=== PATIENT | female | born 1965 | race African-American/Black ===

== ENCOUNTER 2017-03-07 18:19 | Emergency (ER) | payer OTHER ==
[~2017-03-07] VITALS: Ht 154.9 cm; Wt 84.8 kg
[~2017-03-07 18:19] MED LIST: ATOR10TA PO; LEVO150T PO; METF500T4 PO
[2017-03-07 18:24] VITALS: BP 162/88
== END 2017-03-07 18:56 | disposition home or self-care (01) ==
LOC: ER 18:25
DX: M25.462 Effusion, left knee (principal); J45.909 Unspecified asthma, uncomplicated; E03.9 Hypothyroidism, unspecified; M19.90 Unspecified osteoarthritis, unspecified site
CPT/HCPCS: 29505; 99283; A4606 ×2; Z7610 ×2

== ENCOUNTER 2017-05-25 22:36 | Inpatient (IN) | payer OTHER ==
[~2017-05-25] VITALS: Ht 167.6 cm; Wt 81.2 kg
--- NOTE | 2017-05-25 22:47 | NUR ---
51 Y/O FEMALE PLACED IN BED 11 C/O SOB. HX ASTHMA
--- NOTE | 2017-05-25 22:54 | NUR ---
H/L 20G PLACE IN LEFT A/C. PT TOLERATED PROCEDURE WELL. PT PLACED ON 2L N/C TO ASSIST IN BREATHING.
[2017-05-25] MEDS ORDERED: ALBUTEROL FS 2.5 MG/3 ML VIAL.NEB ONE (22:56)
[2017-05-25] MEDS ORDERED: IPRATROPIUM NEB FS 0.5 MG/2.5 ML AMPUL.NEB ONE (22:56)
[2017-05-25] MEDS ORDERED: ALBUTEROL FS 2.5 MG/3 ML VIAL.NEB CONTNEB ONE (23:00)
[2017-05-25] MEDS ORDERED: IPRATROPIUM NEB FS 0.5 MG/2.5 ML AMPUL.NEB NEB ONE (23:00)
[2017-05-25] MEDS ORDERED: DEXAMETHASONE SOD PHOSPHATE 4 MG/ML VIAL IM ONE (23:00)
[2017-05-25] MEDS ORDERED: DEXAMETHASONE SOD PHOSPHATE 10 MG/ML VIAL ONE (23:02)
--- NOTE | 2017-05-25 23:07 | NUR ---
DECADRON GIVEN IM. BREATHING TREATMENT IN PROGRESS. PCXR DONE.
[2017-05-26] MEDS ORDERED: IV NS 0.9% 1,000 ML BAG IV ONE
[2017-05-26] MEDS ORDERED: LORAZEPAM INJ 2 MG/ML VIAL IV ONE
[2017-05-26] MEDS ORDERED: LORAZEPAM INJ 2 MG/ML VIAL ONE (00:04)
--- NOTE | 2017-05-26 00:54 | NUR ---
CALLED CAFETERIA TABLE ATTENDANT FOR TELE BED
--- NOTE | 2017-05-26 00:56 | NUR ---
REPORT RECEIVED FROM HEATHER Cutler RN FOR DEEPIKA.
--- NOTE | 2017-05-26 00:57 | NUR ---
LAB AT BEDSIDE.
[2017-05-26] MEDS ORDERED: OSELTAMIVIR PHOSPHATE 75 MG CAPSULE PO ONE (01:00)
[2017-05-26] MEDS ORDERED: ACETAMINOPHEN 325 MG TABLET PO ONE (01:00)
--- NOTE | 2017-05-26 01:05 | NUR ---
PT SVT ON SENIOR SALES MANAGER, MD AT BEDSIDE.
[2017-05-26 01:07] LABS: EOSINOPHILS # (AUTO) 0.2 /CMM (0.0-0.7); EOSINOPHILS % (AUTO) 1.7 % (0.0-6.0); HEMATOCRIT 39 % (33-45); LYMPHOCYTES # (AUTO) 0.9 /CMM (0.8-4.8); LYMPHOCYTES % (AUTO) 8.8 % (20.0-44.0); MEAN CORPUSCULAR HEMOGLOBIN 26 PG (26.0-33.0); MEAN CORPUSCULAR HGB CONC 33 g/dl (31.0-36.0); MEAN CORPUSCULAR VOLUME 79 fL (82-100); MONOCYTES # (AUTO) 0.2 /CMM (0.1-1.30); MONOCYTES % (AUTO) 1.6 % (2.0-12.0); NEUTROPHILS # (AUTO) 8.9 /CMM (1.8-8.9); NEUTROPHILS % (AUTO) 87.9 % (43.0-81.0); PLATELET COUNT (AUTO) 340 /CMM (150-450); RDW COEFFICIENT OF VARIATION 14.9 (11.5-15.0); WHITE BLOOD COUNT (AUTO) 10.2 K/uL (4.3-11.0)
[2017-05-26] MEDS ORDERED: ADENOSINE 6 MG/2 ML VIAL ONE (01:11)
[2017-05-26 01:17] LABS: CALCIUM, SERUM 8.4 mg/dL (8.5-10.1); CREATININE 0.9 mg/dL (0.6-1.3); POTASSIUM 3.8 mmol/L (3.5-5.1)
--- NOTE | 2017-05-26 01:20 | NUR ---
PT NSR ON DISTRIBUTION CENTER ASSOCIATE, AWARE.
[2017-05-26] MEDS ORDERED: ONDANSETRON HCL/PF 4 MG/2 ML VIAL ONE (01:21)
[2017-05-26] MEDS ORDERED: ONDANSETRON HCL/PF 4 MG/2 ML VIAL IV ONE (01:30)
[2017-05-26] MEDS ORDERED: ADENOSINE 6 MG/2 ML VIAL IVP ONE (01:30)
--- NOTE | 2017-05-26 01:31 | NUR ---
PT STATES DAUGHTER WILL BRING HOME MEDS IN THE AM.
[2017-05-26] MEDS ORDERED: ACETAMINOPHEN ES 500 MG TABLET ONE (01:44)
[2017-05-26] MEDS ORDERED: OSELTAMIVIR PHOSPHATE 75 MG CAPSULE ONE ×2 (01:44→16:20)
[2017-05-26] MEDS ORDERED: MAG HYDROX/AL HYDROX/SIMETH 30 ML UDC PO PRN (02:00)
[2017-05-26] MEDS ORDERED: ONDANSETRON HCL/PF 4 MG/2 ML VIAL IVP PRN (02:00)
[2017-05-26] MEDS ORDERED: HYDROCODONE/APAP 5/325MG 1 EACH TABLET PO PRN (02:00)
[2017-05-26] MEDS ORDERED: Z GUARD REMEDY 2 OZ OINT TP PRN (02:00)
[2017-05-26] MEDS ORDERED: ACETAMINOPHEN 325 MG TABLET PO PRN (02:00)
[2017-05-26] MEDS ORDERED: ALBUTEROL FS 2.5 MG/0.5 ML VIAL.NEB NEB PRN (02:00)
[2017-05-26] MEDS ORDERED: DEXTROSE 50%-WATER 50 ML DISP.SYRIN IV PRN (02:00)
[2017-05-26] MEDS ORDERED: MAGNESIUM HYDROXIDE 30 ML UDC PO PRN (02:00)
[2017-05-26] MEDS ORDERED: ZOLPIDEM TARTRATE 5 MG TABLET PO PRN (02:00)
[2017-05-26] MEDS ORDERED: ASPIRIN 325 MG TABLET ONE ×2 (03:05→15:29)
--- NOTE | 2017-05-26 03:11 | NUR ---
PT RESTING QUIETLY, VSS/RESP EVEN UNLABORED.
[2017-05-26] MEDS ORDERED: ASPIRIN 325 MG TABLET PO ONE (03:30)
--- NOTE | 2017-05-26 04:27 | NUR ---
ULTRASOUND AT BEDSIDE.
--- NOTE | 2017-05-26 06:09 | NUR ---
NO CHANGES, AWAITING BED ASSIGNMENT. PT RESTING QUIETLY, VSS/RESP EVEN UNLABORED.
--- NOTE | 2017-05-26 07:19 | NUR ---
REPORT GIVEN TO VAIBHAV BROWN FOR DEEPIKA.
--- NOTE | 2017-05-26 07:22 | NUR ---
RECEIVED REPORT FOR DEEPIKA. PATIENT SLEEPING COMFORTABLY, VITALS STABLE. SAFETY AND COMFORT MEASURES IN PLACE. WILL CONTINUE TO MONITOR.
[2017-05-26] MEDS ORDERED: LEVOTHYROXINE SODIUM 150 MCG TABLET PO SCH ×2 (09:00→14:55)
[2017-05-26] MEDS ORDERED: ENOXAPARIN SODIUM 40 MG/0.4 ML DISP.SYRIN SQ ONE (15:28)
[2017-05-26] MEDS: BLOOD SUGAR DIAGNOSTIC 1 EACH STRIP VI SCH ×3 (15:31→18:14)
--- NOTE | 2017-05-26 15:31 | NUR ---
BLOOD SUGAR CHECKED, READING 327. INFORMED, COVERED WITH REGULAR INSULIN MODERATE SLIDING SCALE.
[2017-05-26] MEDS ORDERED: INSULIN REGULAR, HUMAN 100 UNIT/ML 10 ML VIAL ONE (15:32)
[2017-05-26] MEDS: ENOXAPARIN SODIUM 40 MG/0.4 ML DISP.SYRIN SQ SCH (15:38)
[2017-05-26] MEDS: ASPIRIN 325 MG TABLET PO SCH (15:38)
--- NOTE | 2017-05-26 15:38 | NUR ---
PER DR. WOODALL, ADMINISTER INPATIENT MEDICATIONS IN ER UNTIL PATIENT IS TRANSFERRED TO BED. PER PHARMACIST JANY OLEA TO PULL INPATIENT MEDICATIONS FROM ER OMNICELL. PHARMACIST DID NOT PROVIDE INPATIENT MEDICATIONS DIRECTLY FROM PHARMACY.
[2017-05-26] MEDS ORDERED: methylPREDNISolone SOD SUCC 125 MG/2ML VIAL ONE (16:20)
[2017-05-26] MEDS: LEVOTHYROXINE SODIUM 75 MCG TABLET PO SCH (16:26)
[2017-05-26] MEDS: METFORMIN 500 MG TABLET PO SCH ×2 (16:26→18:08)
[2017-05-26] MEDS: methylPREDNISolone SOD SUCC 125 MG/2ML VIAL IV SCH (16:26)
[2017-05-26] MEDS: OSELTAMIVIR PHOSPHATE 75 MG CAPSULE PO SCH (16:26)
--- NOTE | 2017-05-26 18:08 | NUR ---
METFORMING MARKED NOT ADMINISTERED AT THIS TIME. PATIENT BEGAN TAKING FIRST DOSE AT 1626.
--- NOTE | 2017-05-26 18:09 | NUR ---
BLOOD SUGAR CHECKED, READING 360. INFORMED, COVERED WITH MODERATE SLIDING SCALE REGULAR INSULIN.
--- NOTE | 2017-05-26 19:36 | NUR ---
REPORT GIVEN TO DELGADO ESPOSITO FOR DEEPIKA
--- NOTE | 2017-05-26 20:29 | NUR ---
report recieved from sue
--- NOTE | 2017-05-26 21:28 | NUR ---
201. AWAITING ANOTHER PT TO BE TRANSFERD TO ANOTHER ROOM AND HOUSE KEEPING TO CLEAN THE ROOM
--- NOTE | 2017-05-26 21:55 | NUR ---
CALLED TO GIVE REPORT, NO ASSIGNED NURSE TO THE PT YET. WILL CALL BACK IN 10MINS
[2017-05-27] VITALS: BP 140/79
[2017-05-27] MEDS: methylPREDNISolone SOD SUCC 125 MG/2ML VIAL IV SCH ×5 (00:06→21:42)
[2017-05-27] MEDS: ATORVASTATIN 10 MG TABLET PO SCH ×2 (00:06→21:42)
[2017-05-27] MEDS: BLOOD SUGAR DIAGNOSTIC 1 EACH STRIP VI SCH ×5 (00:09→21:50)
[2017-05-27] MEDS: *INSULIN REGULAR(HUMULIN R)HUM 100 UNIT/ML VIAL SQ PRN ×2 (00:11→21:43)
--- NOTE | 2017-05-27 00:46 | NUR ---
RN NOTES CLARIFIED ADMITTING ORDERS WITH DR PINEDA, PATIENT IS TELEMETRY STATUS. WILL CONTINUE TO CLOSELY MONITOR.
--- NOTE | 2017-05-27 03:19 | NUR ---
RN NOTE RECEIVED PATIENT FROM ER, REPORT WAS GIVEN BY LORRIE, PATENT IS ALERT/ORIENTED, ON DROPLET ISOLATION DUE TO FLU, NSTEMI, ASTHMA, ON ROOM AIR 96%, NO S/S OF DISTRESS NOTED, PATIENT REQUESTED MAALOX DUE TO HEART BURN, MAALOX WAS ADMINISTERED, MEDICATION WAS EFFECTIVE, VITAL SIGNS: BP 140/79, SO2 96%, TEMPERATURE 98.4F, PULSE 83, PATIENT IS SINUS RYTHM ON THE MONITOR, MRSA SWAB WAS DONE IN THE ER, ACOORDING TO LORRIE, BED IN THE LOW POSITION, CALL LIGHT WITHIN REACH, SIDE RAILS UP X 2, WILL CONTINUE TO MONITOR
[2017-05-27 06:45] LABS: BASOPHILS % (AUTO) 0.2 % (0.0-2.0); EOSINOPHILS % (AUTO) 0.1 % (0.0-6.0); HEMATOCRIT 39 % (33-45); HEMOGLOBIN 12.7 g/dL (11.5-14.8); LYMPHOCYTES # (AUTO) 1.3 /CMM (0.8-4.8); LYMPHOCYTES % (AUTO) 15.1 % (20.0-44.0); MEAN CORPUSCULAR HEMOGLOBIN 26 PG (26.0-33.0); MEAN CORPUSCULAR HGB CONC 33 g/dl (31.0-36.0); MEAN CORPUSCULAR VOLUME 79 fL (82-100); MONOCYTES # (AUTO) 0.3 /CMM (0.1-1.30); MONOCYTES % (AUTO) 3.9 % (2.0-12.0); NEUTROPHILS # (AUTO) 6.9 /CMM (1.8-8.9); NEUTROPHILS % (AUTO) 80.7 % (43.0-81.0); PLATELET COUNT (AUTO) 351 /CMM (150-450); RDW COEFFICIENT OF VARIATION 15.2 (11.5-15.0); RED BLOOD CELL COUNT(AUTO) 4.89 MIL/uL (4.0-5.2); WHITE BLOOD COUNT (AUTO) 8.6 K/uL (4.3-11.0)
[2017-05-27 07:11] LABS: CALCIUM, SERUM 9.3 mg/dL (8.5-10.1); CREATININE 0.9 mg/dL (0.6-1.3); MAGNESIUM 2.3 mg/dL (1.8-2.4); PHOSPHORUS 3.4 mg/dL (2.5-4.9); POTASSIUM 4.6 mmol/L (3.5-5.1)
--- NOTE | 2017-05-27 07:30 | NUR ---
BRICK OFFBEARER INITIAL NOTES RECEIVED PATIENT IN BED, AOX3, ON 2L NC, SATURATING 95%, NO SIGNS OF DISTRESS, ON DROPLET PRECAUTIONS FOR INFLUENZA, IV LAC 20G AND R FA 20G CLEAN AND PATENT, ON TELE MONITORING SR 80S, AMBULATORY, BED IN LOW AND LOCKED POSITION CALL LIGHT WITHIN REACH, WILL CONTINUE TO MONITOR.
--- NOTE | 2017-05-27 07:32 | NUR ---
RN CLOSING NOTE PATIENT HAD NO S/S OF DISTRESS, NO CHEST PAIN OR DISCOMFORT NOTED, PATIENT IS ALERT/ORIENTED, SIDE RAILS UP, CALL LIGHT WITHIN REACH, ENDORSED TO THE NEXT SHIFT
[2017-05-27 08:00] VITALS: BP 141/83
[2017-05-27] MEDS: OSELTAMIVIR PHOSPHATE 75 MG CAPSULE PO SCH ×2 (08:25→17:18)
[2017-05-27] MEDS: ASPIRIN 325 MG TABLET PO SCH (08:25)
[2017-05-27] MEDS: METFORMIN 500 MG TABLET PO SCH ×2 (08:25→17:00)
[2017-05-27] MEDS: ENOXAPARIN SODIUM 40 MG/0.4 ML DISP.SYRIN SQ SCH (08:26)
[2017-05-27] MEDS: INSULIN REGULAR, HUMAN 100 UNIT/ML 3 ML VIAL SQ PRN ×3 (09:57→17:10)
[2017-05-27 12:00] VITALS: BP 128/74
--- NOTE | 2017-05-27 12:00 | NUR ---
TRACKMAN NOTES PATIENT HAS BLOOD SUGAR 408 15 UNITS GIVEN AND GYN RADHA TORRE INFORMED.
[2017-05-27 16:00] VITALS: BP 144/81
[2017-05-27] MEDS: DOCUSATE SODIUM 100 MG CAPSULE PO SCH (17:17)
--- NOTE | 2017-05-27 19:00 | NUR ---
WELL SURVEYING ENGINEER NOTES PATIENT IN CHAIR, ALL NEEDS MET, CONSENT SIGNED FOR CT ANGIOGRAM, NPO AT MIDNIGHT, ENDORSED TO GARDENER FLORIST, METFORMIN TO BE HELD FOR 48 HOURS AFTER PROCEDURE.
--- NOTE | 2017-05-27 19:30 | NUR ---
RN OPENING NOTES: RECEIVED PATIENT SITTING ON CHAIR AT BEDSIDE, AWAKE AND ORIENTED X4; ON ROOM AIR NOT IN APPARENT DISTRESS. IV ACCESS ON LAC INTACT AND FLUSHING WELL. NOTED RFA G18 LEAKING AND PATIENT COMPLAINING OF PAIN OVER SITE. PATIENT ASKED TO REMOVE THIS IV ACCESS IT BOTHERED HER. SEEING OTHER IV ACCESS INTACT AND PATENT, REMOVED OTHER IV ACCESS. CALL LIGHT IN REACH. NO COMPLAINTS OF PAIN. AWARE THAT SHE WILL BE NPO POST MIDNIGHT FOR PROCEDURE. SAFETY MEASURES ENSURED. CONTINUOUSLY MONITORED.
[2017-05-27 20:00] VITALS: BP 134/78
[2017-05-28] VITALS: BP 146/76
[2017-05-28 04:00] VITALS: BP 141/86
[2017-05-28] MEDS: INSULIN REGULAR, HUMAN 100 UNIT/ML 3 ML VIAL SQ PRN ×3 (06:31→17:38)
[2017-05-28] MEDS: BLOOD SUGAR DIAGNOSTIC 1 EACH STRIP VI SCH ×4 (06:32→21:26)
[2017-05-28 06:43] LABS: BASOPHILS % (AUTO) 0.1 % (0.0-2.0); EOSINOPHILS % (AUTO) 0.1 % (0.0-6.0); HEMATOCRIT 37 % (33-45); HEMOGLOBIN 12.5 g/dL (11.5-14.8); LYMPHOCYTES # (AUTO) 1.4 /CMM (0.8-4.8); MEAN CORPUSCULAR HEMOGLOBIN 26 PG (26.0-33.0); MEAN CORPUSCULAR HGB CONC 34 g/dl (31.0-36.0); MEAN CORPUSCULAR VOLUME 79 fL (82-100); MONOCYTES # (AUTO) 0.7 /CMM (0.1-1.30); NEUTROPHILS # (AUTO) 8.9 /CMM (1.8-8.9); NEUTROPHILS % (AUTO) 80.8 % (43.0-81.0); PLATELET COUNT (AUTO) 336 /CMM (150-450); RDW COEFFICIENT OF VARIATION 14.9 (11.5-15.0); RED BLOOD CELL COUNT(AUTO) 4.72 MIL/uL (4.0-5.2)
[2017-05-28 06:57] LABS: CALCIUM, SERUM 9.1 mg/dL (8.5-10.1); CREATININE 0.9 mg/dL (0.6-1.3)
--- NOTE | 2017-05-28 06:57 | NUR ---
RN CLOSING NOTES: PATIENT REMAINED IN BED NOT IN APPARENT DISTRESS; NO ACUTE CHANGES OVERNIGHT, REMAINS TO HAVE PRODUCTIVE COUGH. PATIENT REQUESTING FOR MED THAT WILL LOOSEN UP HER PHLEGM. TO COMMUNICATE WITH AM SHIFT RN. PATIENT REMAINED NPO. CONSENT AND CHECKLIST FOR CT ANGIOGRAM SIGNED. CONTINUOUSLY MONITORED. ENDORSED TO AM SHIFT RN.
[2017-05-28 07:03] LABS: POTASSIUM 4.4 mmol/L (3.5-5.1)
[2017-05-28 08:00] VITALS: BP 148/78
--- NOTE | 2017-05-28 08:30 | NUR ---
RN NOTES PT RECEIVED PT AM NURSE. PT A&0X3, ON ROOM AIR NO DISTRESS NOTED. SR ON THE TELE MONITOR HR 73. LAC 20G IV SITE INTACT NO IVF. PT CURRENTLY NPO EXCEPT MEDS AWAITING CT ANGIO. AM ASPIRIN AND LOVENOX HELD BEFORE PROCEDURE. WILL CONT TO YVONNE.
[2017-05-28] MEDS: ENOXAPARIN SODIUM 40 MG/0.4 ML DISP.SYRIN SQ SCH (09:00)
[2017-05-28] MEDS: ASPIRIN 325 MG TABLET PO SCH (09:00)
[2017-05-28] MEDS: methylPREDNISolone SOD SUCC 125 MG/2ML VIAL IV SCH ×4 (09:03→21:26)
[2017-05-28] MEDS: LEVOTHYROXINE SODIUM 75 MCG TABLET PO SCH (09:03)
[2017-05-28] MEDS: OSELTAMIVIR PHOSPHATE 75 MG CAPSULE PO SCH ×2 (09:03→16:31)
[2017-05-28] MEDS: DOCUSATE SODIUM 100 MG CAPSULE PO SCH ×2 (09:04→16:22)
--- NOTE | 2017-05-28 11:45 | NUR ---
RN NOTES REPORT GIVEN BACK TO VAIBHAV DOBBS FOR CONTINUITY OF CARE.
[2017-05-28 12:00] VITALS: BP_SYST 148; BP_DIAS 78; BP_DIAS 86
[2017-05-28] MEDS ORDERED: METOPROLOL TARTRATE INJ 5 MG/5 ML AMPUL ONE (12:23)
[2017-05-28] MEDS ORDERED: IOHEXOL-350 100 ML VIAL IV ONE (12:25)
[2017-05-28] MEDS ORDERED: CT SWABBABLE VALVE TRANS SET 1 EA INFUS.SET MC ONE (12:26)
[2017-05-28] MEDS ORDERED: IV NS 0.9% 250 ML IV ONE (12:26)
--- NOTE | 2017-05-28 12:30 | NUR ---
ACCOUNT LIAISON NOTE TAKEN TO CT ANGIOGRAM ORDERED KEEP NPO
[2017-05-28 12:46] LABS: IRON, SERUM 52 ug/dl (50-175); TOTAL IRON BINDING CAPACITY 248 ug/dl (250-450)
[2017-05-28] MEDS ORDERED: VERAPAMIL HCL IV 5 MG/2 ML VIAL ONE (12:51)
[2017-05-28 13:31] LABS: FERRITIN 89 ng/mL (8-388)
--- NOTE | 2017-05-28 14:00 | NUR ---
TON CONTAINER SHIPPER NOTE BACK FROM CT ANGIO ,ALL NEEDS ATTENDED NOT IN ACUTE DISTRESS, ENCOURAGE TO DRINK WATER
[2017-05-28 16:00] VITALS: BP 147/80
--- NOTE | 2017-05-28 17:41 | NUR ---
LOAD BLOCKER NOTE UPON CHAIR ,NOT IN ACUTE DISTRESS, HAVING DINNER, ALL NEEDS ATTENDEE, NO SOB NOTED, WILL CONTO MONITOR CLOSELY
--- NOTE | 2017-05-28 19:17 | NUR ---
SALES MERCHANDISE ASSOCIATE NOT ALL NEEDS ATTENDED ,. NOT IN ACUTE DISTRESS
--- NOTE | 2017-05-28 19:30 | NUR ---
ENVIRONMENTAL SERVICES FLOOR TECH INITIAL NOTE PT RECEIVED SITTING UP IN BED. A/O X4 AND ABLE TO VERBALIZE NEEDS. ON ROOM AIR AND SATURATING WELL. BREATHING REGULAR, EVEN AND UNLABORED. TELE- SINUS RHYTHM 63. IV RAC #20 CLEAN, INTACT AND FLUSHING WELL. HOB ELEVATED. DROPLET ISOLATION PRECAUTIONS OBSERVED.CALL LIGHT WITHIN REACH. WILL CONTINUE TO MONITOR.
[2017-05-28 20:00] VITALS: BP 134/79
[2017-05-28] MEDS: ATORVASTATIN 10 MG TABLET PO SCH (21:26)
[2017-05-28] MEDS: *INSULIN REGULAR(HUMULIN R)HUM 100 UNIT/ML VIAL SQ PRN (21:41)
[2017-05-29] VITALS: BP 120/85
--- NOTE | 2017-05-29 01:00 | NUR ---
STRUCTURAL FITTER NOTE GAVE REPORT TO DEV ESPOSITO FOR CONTINUITY OF CARE.
--- NOTE | 2017-05-29 01:10 | NUR ---
TELE/RN NOTES RECEIVED REPORT FROM VAIBHAV MOHR. RECEIVED PT. FROM [facility] [employer]. PT. IS AWAKE, ALERT AND ORIENTED X4. BREATHING EVEN AND UNLABORED ON ROOM AIR. NO SOB, RESPIRATORY DISTRESS OR COMPLAINTS OF PAIN NOTED AT THIS TIME. PT. WITH EXTERNAL GROUNDS PERSON PRESENT AND INTACT CURRENT RHYTHM = SINUS RHYTHM HR 65. PT. WITH RIGHT AC 20 GAUGE IV SALINE LOCK PRESENT, PATENT AND INTACT. BED LOCKED AND IN LOWEST POSITION, SIDE RAILS UP X2, CALL LIGHT WITHIN REACH, WILL CONTINUE TO MONITOR.
[2017-05-29 04:00] VITALS: BP 124/77
--- NOTE | 2017-05-29 06:22 | NUR ---
TELE/RN NOTES PT. IS LYING IN BED RESTING. BREATHING EVEN AND UNLABORED ON ROOM AIR. NO SOB, RESPIRATORY DISTRESS OR COMPLAINTS OF PAIN NOTED AT THIS TIME. PT. WITH EXTERNAL MONUMENT ERECTOR PRESENT AND INTACT CURRENT RHYTHM = SINUS TOMI WITH PAC'S 57. PT. WITH RIGHT AC 20 GAUGE IV SALINE LOCK PRESENT, PATENT AND INTACT. BED LOCKED AND IN LOWEST POSITION, SIDE RAILS UP X2, CALL LIGHT WITHIN REACH, WILL ENDORSE TO DAYSHIFT NURSE FOR CONTINUITY OF CARE.
[2017-05-29] MEDS: BLOOD SUGAR DIAGNOSTIC 1 EACH STRIP VI SCH ×2 (06:54→12:08)
[2017-05-29] MEDS: INSULIN REGULAR, HUMAN 100 UNIT/ML 3 ML VIAL SQ PRN ×2 (06:55→12:07)
--- NOTE | 2017-05-29 07:05 | NUR ---
REPORT RECEIVED AT THE BEDSIDE. PATIENT IS RESTING COMFORTABLY IN BED. NO SOB OR DISTRESS NOTED AT THIS TIME. PATIENT DENIES PAIN AT THIS TIME. HEART RATE 65 WITH PACS ON THE MONITOR. BED IN A LOW POSITION, CALL LIGHT WITHIN PATIENT REACH. WILL CONTINUE TO MONITOR.
[2017-05-29 07:34] LABS: BASOPHILS % (AUTO) 0.2 % (0.0-2.0); HEMATOCRIT 39 % (33-45); HEMOGLOBIN 12.9 g/dL (11.5-14.8); LYMPHOCYTES # (AUTO) 1.6 /CMM (0.8-4.8); LYMPHOCYTES % (AUTO) 14.7 % (20.0-44.0); MEAN CORPUSCULAR HEMOGLOBIN 26 PG (26.0-33.0); MEAN CORPUSCULAR HGB CONC 33 g/dl (31.0-36.0); MEAN CORPUSCULAR VOLUME 79 fL (82-100); MONOCYTES # (AUTO) 0.7 /CMM (0.1-1.30); MONOCYTES % (AUTO) 6.2 % (2.0-12.0); NEUTROPHILS # (AUTO) 8.7 /CMM (1.8-8.9); NEUTROPHILS % (AUTO) 78.9 % (43.0-81.0); PLATELET COUNT (AUTO) 367 /CMM (150-450); RDW COEFFICIENT OF VARIATION 14.3 (11.5-15.0); RED BLOOD CELL COUNT(AUTO) 4.95 MIL/uL (4.0-5.2)
[2017-05-29 08:00] VITALS: BP 143/84
[2017-05-29 08:04] LABS: CALCIUM, SERUM 9.2 mg/dL (8.5-10.1); CREATININE 0.9 mg/dL (0.6-1.3); MAGNESIUM 2.1 mg/dL (1.8-2.4); PHOSPHORUS 4.3 mg/dL (2.5-4.9); POTASSIUM 4.4 mmol/L (3.5-5.1)
[2017-05-29] MEDS: ENOXAPARIN SODIUM 40 MG/0.4 ML DISP.SYRIN SQ SCH (08:45)
[2017-05-29] MEDS: LEVOTHYROXINE SODIUM 75 MCG TABLET PO SCH (08:45)
[2017-05-29] MEDS: methylPREDNISolone SOD SUCC 125 MG/2ML VIAL IV SCH ×2 (08:45→13:00)
[2017-05-29] MEDS: DOCUSATE SODIUM 100 MG CAPSULE PO SCH (08:45)
[2017-05-29] MEDS: ASPIRIN 325 MG TABLET PO SCH (08:45)
[2017-05-29] MEDS: OSELTAMIVIR PHOSPHATE 75 MG CAPSULE PO SCH (08:45)
[2017-05-29] MEDS ORDERED: PRED20TA PO ×2 (10:31)
[2017-05-29] MEDS ORDERED: OSEL75CA PO (10:31)
[2017-05-29] MEDS ORDERED: ASPI-992 PO (10:31)
[2017-05-29] MEDS ORDERED: METF500T4 PO (10:38)
[2017-05-29] MEDS ORDERED: METH4TAB3 PO (10:54)
[2017-05-29] MEDS ORDERED: BISACODYL SUPP (10 MG) 10 MG/SUPP.RECT SUPP.RECT RC PRN (11:30)
--- NOTE | 2017-05-29 13:21 | NUR ---
DISCHARGE INSTRUCTIONS GIVEN TO THE PATIENT AND ABLE TO UNDERSTAND. NO SOB OR DISTRESS NOTED AT THIS TIME. PATIENT DENIES PAIN. ALL PAPERWORK SIGNED AND BELONGINGS ACCOUNTED FOR. PRESCRIPTIONS GIVEN TO THE PATIENT. PT REFUSES FLU SHOT AT THIS TIME. PATIENT LEFT IN STABLE CONDITION, VIA WHEEL CHAIR, ACCOMPANIED BY DANII ESCUDERO. IV REMOVED AND PRESSURE APPLIED. NO BLEEDING NOTED AT THE SITE. PT LEFT IN STABLE CONDITION TO HOME.
== END 2017-05-29 14:46 | disposition home or self-care (01) | DRG 190 ==
LOC: ER 22:37 → TRANSITION 05-26 14:15 → MEDSG1 05-26 22:38 → TELE1 05-27 00:12 → TELE 05-29 00:52 → MED 05-29 09:06
PROVIDERS: ADMIT Internal Medicine; ATTEND Internal Medicine
DX: I21.A1 Myocardial infarction type 2 (principal); E87.1 Hypo-osmolality and hyponatremia; J45.901 Unspecified asthma with (acute) exacerbation; J09.X2 Influenza due to identified novel influenza A virus with other respiratory manifestations; E11.9 Type 2 diabetes mellitus without complications; K44.9 Diaphragmatic hernia without obstruction or gangrene; I47.1 Supraventricular tachycardia; K59.00 Constipation, unspecified; I25.2 Old myocardial infarction; E89.0 Postprocedural hypothyroidism; M19.90 Unspecified osteoarthritis, unspecified site; M81.0 Age-related osteoporosis without current pathological fracture; Z82.49 Family history of ischemic heart disease and other diseases of the circulatory system; Z79.899 Other long term (current) drug therapy; Z87.891 Personal history of nicotine dependence; Z79.84 Long term (current) use of oral hypoglycemic drugs; Z98.890 Other specified postprocedural states; Z87.01 Personal history of pneumonia (recurrent); R09.02 Hypoxemia
CPT/HCPCS: 36415; 71045-TC; 75574; 80048-TC; 82728-TC; 82962-TC; 83540-TC; 83735-TC; 84100-TC; 84484-TC; 85025-TC; 87081-TC; 87400; 93307-TC; A4606; J0153; J1100; J1650; J1815; J2060; J2405; J2930; J3490; J7030; J7050; Q9967; Z7610

== ENCOUNTER 2021-08-09 08:30 | Emergency (ER) | payer OTHER ==
[~2021-08-09] VITALS: Ht 154.9 cm; Wt 85.7 kg
[~2021-08-09 08:30] MED LIST changes: +ASPI-992 PO; +METF-440 PO; -METF500T4 PO; +METH4TAB3 PO; +OSEL75CA PO; +PRED20TA PO
--- NOTE | 2021-08-09 08:41 | NUR ---
BIBS WITH L SIDED RIB/FLANK AREA PAIN X 2 DAYS. "HURTS WHEN LYING DOWN". AMBULATORY NOT IN DISTRESS. PLACED ON BED 11 ATTACHED TO MEDICATION NURSE SINUS RHYTHM. AWAITING MD FOR EVAL
--- NOTE | 2021-08-09 08:46 | NUR ---
AT BED SIDE
--- NOTE | 2021-08-09 08:59 | NUR ---
EAR NOSE AND THROAT SPECIALIST AT BEDSIDE
[2021-08-09 09:07] LABS: BASOPHILS # (AUTO) 0.1 K/uL (0.0-0.2); BASOPHILS % (AUTO) 0.9 % (0.0-2.0); EOSINOPHILS % (AUTO) 0.7 % (0.0-6.0); HEMATOCRIT 39 % (33-45); HEMOGLOBIN 12.4 g/dL (11.5-14.8); MEAN CORPUSCULAR HGB CONC 32 g/dl (31.0-36.0); MEAN CORPUSCULAR VOLUME 78 fL (82-100); MONOCYTES # (AUTO) 0.4 K/uL (0.1-1.30); MONOCYTES % (AUTO) 5.8 % (2.0-12.0); NEUTROPHILS # (AUTO) 4.6 K/uL (1.8-8.9); NEUTROPHILS % (AUTO) 64.6 % (43.0-81.0); PLATELET COUNT (AUTO) 335 K/uL (150-450); RED BLOOD CELL COUNT(AUTO) 5.02 MIL/uL (4.0-5.2); WHITE BLOOD COUNT (AUTO) 7.1 K/uL (4.3-11.0)
--- NOTE | 2021-08-09 09:21 | NUR ---
RECEIVED VERBAL ORDER FROM DR KOHLI FOR ASPIRIN 325MG PO, FAMOTIDINE 40MG IV
[2021-08-09] MEDS ORDERED: ASPIRIN 325 MG TABLET ONE (09:22)
[2021-08-09] MEDS ORDERED: FAMOTIDINE/PF INJ 20 MG/2 ML VIAL IV ONE ×2 (09:25→10:30)
[2021-08-09 09:35] LABS: CALCIUM, SERUM 9.1 mg/dL (8.5-10.1); CARBON DIOXIDE 27 mmol/L (21-32); CHLORIDE 102 mmol/L (98-107); GLUCOSE 184 mg/dL (74-106); POTASSIUM 4.3 mmol/L (3.5-5.1); SODIUM SERUM 134 mmol/L (136-145); UREA NITROGEN, BLOOD 18 mg/dL (7-18)
[2021-08-09 09:41] LABS: ALANINE AMINOTRANSFERASE 41 U/L (12-78); ALBUMIN 3.4 g/dL (3.4-5.0); ALKALINE PHOSPHATASE 168 U/L (46-116); ASPARTATE AMINOTRANSFERASE 16 U/L (15-37); BILIRUBIN,DIRECT 0.1 mg/dL (0.0-0.2); BILIRUBIN,TOTAL 0.3 mg/dL (0.2-1.0)
--- NOTE | 2021-08-09 09:43 | NUR ---
CRAFT DEMONSTRATOR AT BEDSIDE
--- NOTE | 2021-08-09 09:50 | NUR ---
PATIENT IS IN PAIN. INFORMED
[2021-08-09] MEDS ORDERED: ASPIRIN EC 325 MG TABLET.DR PO ONE (10:30)
[2021-08-09] MEDS ORDERED: DOCU-141 PO (12:17)
--- NOTE | 2021-08-09 12:30 | NUR ---
IV removed. Catheter intact and site benign. Pressure and 4x4 applied to site. No bleeding noted.Patient discharged to home in stable condition. Written and verbal after care instructions given. Patient verbalizes understanding of instruction.
[2021-08-09 12:32] VITALS: BP 140/88
== END 2021-08-09 12:34 | disposition home or self-care (01) ==
LOC: ER 08:43
DX: R07.89 Other chest pain (principal); K59.00 Constipation, unspecified; E03.9 Hypothyroidism, unspecified; J45.909 Unspecified asthma, uncomplicated; M19.90 Unspecified osteoarthritis, unspecified site; I25.2 Old myocardial infarction; Z98.891 History of uterine scar from previous surgery; Z60.2 Problems related to living alone; Z79.52 Long term (current) use of systemic steroids; Z79.84 Long term (current) use of oral hypoglycemic drugs; Z79.82 Long term (current) use of aspirin; Z79.899 Other long term (current) drug therapy
CPT/HCPCS: 36415; 71045; 80048; 80076; 84484 ×2; 85025; 93005 ×2; 96374; 99285; J3490